=== PATIENT | female | born 1945 | race Caucasian/White ===

== ENCOUNTER 2016-09-16 12:31 | Inpatient (IN) | payer OTHER ==
[~2016-09-16] VITALS: Ht 165.1 cm; Wt 55.0 kg
--- NOTE | 2016-09-16 14:18 | ED ORDER SUMMARY ---
..... Patient: SHAYY PADILLA OrderSheet [facility] VisitID: [id number] [address] [place] [address] 70y, F Registration Date/Time: 09/16/2016 ORDER SHEET Weight: 56.6 kg (stated) Allergies: Lirica GENERAL ORDERS: CBC w Diff Urgent (12:51 09/16/2016 JSimbeck R.N. per protocol) (Ack 12:57 TBergley) (13:08 JSimbeck R.N.) CMP Urgent (12:51 09/16/2016 JSimbeck R.N. per protocol) (Ack 12:57 TBergley) (13:08 JSimbeck R.N.) UA-Culture if indicated Urgent (12:51 09/16/2016 JSimbeck R.N. per protocol) (Ack 12:57 TBergley) (15:20 JSimbeck R.N.) (Cancelled: Other15:21 JSimbeck R.N.) PT with INR Urgent (12:51 09/16/2016 JSimbeck R.N. per protocol) (Ack 12:57 TBergley) (13:08 JSimbeck R.N.) Amylase Urgent (12:51 09/16/2016 JSimbeck R.N. per protocol) (Ack 12:57 TBergley) (13:08 JSimbeck R.N.) Lipase Urgent (12:51 09/16/2016 JSimbeck R.N. per protocol) (Ack 12:57 TBergley) (13:08 JSimbeck R.N.) Pulse oximeter (12:51 09/16/2016 JSimbeck R.N. per protocol) (Ack 12:57 TBergley) (13:08 JSimbeck R.N.) POC Glucose (12:51 09/16/2016 JSimbeck R.N. per protocol) (Ack 12:57 TBergley) (13:09 JSimbeck R.N.) (Cancelled: Other13:09 JSimbeck R.N.) ABG (G) Urgent (14:18 09/16/2016 HBivens A.R.N.P.) (Ack 14:21 KHoerner) (15:25 KHoerner) TSH Urgent (14:18 09/16/2016 HBivens A.R.N.P.) (14:21 KHoerner) EKG - ER Stat (14:18 09/16/2016 HBivens A.R.N.P.) (14:36 PWeiler ER Tech1) (14:36 Winston R.N.) CPK Urgent (14:33 09/16/2016 HBivens A.R.N.P.) (14:38 KHoerner) Troponin-I Urgent (14:33 09/16/2016 HBivens A.R.N.P.) (14:38 KHoerner) Head Bellhop Captain (Continuous) (14:35 09/16/2016 HBivens A.R.N.P.) (14:35 Winston R.N.) Oxygen (2 L/min) (NC) (14:35 09/16/2016 HBivens A.R.N.P.) (14:36 Winston R.N.) UA-Culture if indicated Urgent (15:21 09/16/2016 JSimbeck R.N. per protocol) (Ack 15:25 KHoerner) (15:44 JSimbeck R.N.) MEDICATION ORDERS: IV FLUIDS: IV Saline Lock (12:51 09/16/2016 JSimbeck R.N. per protocol) (13:09 JSimbeck R.N.) IV NS : initial bolus 500 mL (1000 mL/hr), then none - for X1 (NOW) (13:46 09/16/2016 JSimbeck R.N. verbal order read back to HBivens A.R.N.P.) (13:52 JSimbeck R.N.) Zofran IV 4 mg (NOW) (14:09 09/16/2016 HBivens A.R.N.P.) (14:14 JSimbeck R.N.) IV NS : initial bolus 500 mL (1000 mL/hr), then none - for X1 (NOW) (15:53 09/16/2016 JSimbeck R.N. verbal order read back to HBivens A.R.N.P.) (15:57 Martin Fenton) ORDER SHEET NOTES: [Electronically signed by Jame Roberts R.N. (18:51 09/16/2016)] [Electronically signed by Linnette RivasNCourtPCourt (21:30 09/16/2016)] [Electronically locked/signed by Jame Roberts R.N. (18:51 09/16/2016)]
--- NOTE | 2016-09-16 14:18 | ED ORDER SUMMARY ---
..... Patient: SHAYY PADILLA OrderSheet [facility] VisitID: [id number] [address] [place] [address] 70y, F Registration Date/Time: 09/16/2016 ORDER SHEET Weight: 56.6 kg (stated) Allergies: Lirica GENERAL ORDERS: CBC w Diff Urgent (12:51 09/16/2016 JSimbeck R.N. per protocol) (Ack 12:57 TBergley) (13:08 JSimbeck R.N.) CMP Urgent (12:51 09/16/2016 JSimbeck R.N. per protocol) (Ack 12:57 TBergley) (13:08 JSimbeck R.N.) UA-Culture if indicated Urgent (12:51 09/16/2016 JSimbeck R.N. per protocol) (Ack 12:57 TBergley) (15:20 JSimbeck R.N.) (Cancelled: Other15:21 JSimbeck R.N.) PT with INR Urgent (12:51 09/16/2016 JSimbeck R.N. per protocol) (Ack 12:57 TBergley) (13:08 JSimbeck R.N.) Amylase Urgent (12:51 09/16/2016 JSimbeck R.N. per protocol) (Ack 12:57 TBergley) (13:08 JSimbeck R.N.) Lipase Urgent (12:51 09/16/2016 JSimbeck R.N. per protocol) (Ack 12:57 TBergley) (13:08 JSimbeck R.N.) Pulse oximeter (12:51 09/16/2016 JSimbeck R.N. per protocol) (Ack 12:57 TBergley) (13:08 JSimbeck R.N.) POC Glucose (12:51 09/16/2016 JSimbeck R.N. per protocol) (Ack 12:57 TBergley) (13:09 JSimbeck R.N.) (Cancelled: Other13:09 JSimbeck R.N.) ABG (G) Urgent (14:18 09/16/2016 HBivens A.R.N.P.) (Ack 14:21 KHoerner) (15:25 KHoerner) TSH Urgent (14:18 09/16/2016 HBivens A.R.N.P.) (14:21 KHoerner) EKG - ER Stat (14:18 09/16/2016 HBivens A.R.N.P.) (14:36 PWeiler ER Tech1) (14:36 Winston R.N.) CPK Urgent (14:33 09/16/2016 HBivens A.R.N.P.) (14:38 KHoerner) Troponin-I Urgent (14:33 09/16/2016 HBivens A.R.N.P.) (14:38 KHoerner) Hop Strainer (Continuous) (14:35 09/16/2016 HBivens A.R.N.P.) (14:35 Winston R.N.) Oxygen (2 L/min) (NC) (14:35 09/16/2016 HBivens A.R.N.P.) (14:36 Winston R.N.) UA-Culture if indicated Urgent (15:21 09/16/2016 JSimbeck R.N. per protocol) (Ack 15:25 KHoerner) (15:44 JSimbeck R.N.) MEDICATION ORDERS: IV FLUIDS: IV Saline Lock (12:51 09/16/2016 JSimbeck R.N. per protocol) (13:09 JSimbeck R.N.) IV NS : initial bolus 500 mL (1000 mL/hr), then none - for X1 (NOW) (13:46 09/16/2016 JSimbeck R.N. verbal order read back to HBivens A.R.N.P.) (13:52 JSimbeck R.N.) Zofran IV 4 mg (NOW) (14:09 09/16/2016 HBivens A.R.N.P.) (14:14 JSimbeck R.N.) IV NS : initial bolus 500 mL (1000 mL/hr), then none - for X1 (NOW) (15:53 09/16/2016 JSimbeck R.N. verbal order read back to HBivens A.R.N.P.) (15:57 Martin Fenton) ORDER SHEET NOTES: [Electronically signed by Jame Roberts R.N. (18:51 09/16/2016)] [Electronically signed by Linnette RivasNCourtPCourt (21:30 09/16/2016)] [Electronically locked/signed by Jame Roberts R.N. (18:51 09/16/2016)]
--- NOTE | 2016-09-16 14:18 | ED CLINICAL REPORT ---
Clinical Report - Physicians/Mid Levels [facility] [address] [address] 09/16/2016 12:38 Patient: SHAYY PADILLA Time Seen: 13:58; initial patient contact, initial documentation, patient care assumed. Arrived- By ambulance. Historian- patient. HISTORY OF PRESENT ILLNESS Chief Complaint: ( loss of appetite). At its maximum, severity described as severe. When seen in the E.D., severity described as severe. Modifying factors- worsened by food. Not relieved by anything. This started several mos ago and is still present (worse last few days). The patient has had associated loss of appetite, weight loss and decreased urine output. Last urinated: today. She has had generalized weakness, (says she is weak enough today, she can't walk). (decreased stool output in ileostomy bag). Similar symptoms previously: Twice, worse. Recent medical care: The patient was seen recently and hospitalized. ( hospitalized at [facility] in August for ruptured diverticulitis, colostomy bag placed, since then, no appetite, hospitalized again for 5 days at [facility] for same thing, weakness, no appetite, says they did multiple tests, gave fluids constantly, because her kidneys were starting to go into failure, couldn't find anything wrong with her, and kidneys started working normally, and stool started to show up in her bag again, so dc home, but since getting home, again has no appetite, says she tried to eat today, and soon as she took a bite, it came right back up). REVIEW OF SYSTEMS No fever, difficulty breathing, chest pain, abdominal pain or diarrhea. No black stools, bloody stools or blackouts. She has had severe nausea, difficulty with urination (decreased uop), and back pain (chronic back issues, sees pain dr for this). She has had mild vomiting. The vomiting has occurred only once and has been bilious. No feculent emesis, blood-tinged emesis, coffee-grounds emesis, frankly bloody emesis or unusually dark emesis. She has had difficulty with ambulation. It has been associated with weakness in both legs. No history of incontinence, affect changes, dizziness, recent trauma or headaches. No history of coordination problems. The patient has not had a shuffling gait. All systems otherwise negative, except as recorded above. PAST HISTORY See nurses notes. PROBLEMS: Bowel Perforation. Restless Legs Syndrome. Hypertension. --12:48 Jame Roberts R.N. ADDITIONAL SURGERIES: Colostomy. Gastric bypass x2. Ileostomy. --12:48 Jame Roberts R.N. Diverticulitis. SOCIAL HISTORY Heavy tobacco smoker. History of occasional drug use: marijuana. No alcohol use. No recent travel. Is a local resident. She lives alone. FAMILY HISTORY Negative. ADDITIONAL NOTES The nursing notes have been reviewed with agreement regarding the chief complaint, HPI, ROS, PMH and patient medications and allergies. PHYSICAL EXAM Vital Signs: 09/16/2016 12:35 BP: 118/75. HR: 100. RR: 20. O2 saturation: 98%. Temp: 98.1 F. Pain level now: 6/10. Have been reviewed as normal and appear to be correct. Appearance: Alert. No acute distress. Eyes: Pupils equal, round and reactive to light. Eyes normal inspection. Neck: Normal inspection. Neck supple. CVS: Normal heart rate and rhythm. Heart sounds normal. Pulses normal. Respiratory: No respiratory distress. Breath sounds normal. Chest nontender. Abdomen: No visible injury. Soft and nontender. Bowel sounds normal. No organomegaly. No mass. (ileostomy bag intact with green loose stool). Back: Normal inspection. Skin: Skin warm and dry. Normal skin color. No rash. Normal skin turgor. Extremities: Extremities exhibit normal ROM. No lower extremity edema. Neuro: Oriented X 3. No motor deficit. No sensory deficit. LABS, X-RAYS, AND EKG EKG: EKG time: (1426). Rate: 77. ST elevation in lead II, III and V5- consistent with inferior infarction and early repolarization. The study has been interpreted contemporaneously by me (and Dr Pearce and Dr Martinez). The EKG appears to be a good tracing. Interpretation time: 1428. Laboratory Tests: CBC w Diff: (ROD: 09/16/2016 13:00) ( MsgRcvd 09/16/2016 14:20) Final results Test Result Flag Units (Reference) WHITE BLOOD COUNT 11.3 K/uL (4.5-11.5) RED BLOOD COUNT 4.16 M/uL (4.00-5.20) HEMOGLOBIN 11.7 L gm/dL (12.0-16.0) HEMATOCRIT 35.5 L % (36.0-46.0) MEAN CELL VOLUME 85 fL (80-100) MEAN CORPUSCULAR HGB 28 pg (26-34) MEAN CORPUSCULAR HGB CONC 33 g/dL (31-37) RED CELL DISTRIBUTION WIDTH 15.3 H % (11.6-14.8) PLATELET COUNT 525 H K/uL (150-400) POLY % 63 % (50-75) BAND % 3 % (0-8) LYMPH 27 % (25-40) MONO 6 % (3-14) EOSINOPHIL % 1 % (0-4) BASOPHIL % 0 % (0-2) METAMYELOCYTE % 0 % (0-1) MYELOCYTE 0 % (0-1) OTHER CELL TYPE 0 RBC MORPHOLOGY NORMAL~~PLTS INC PT with INR: (ROD: 09/16/2016 13:00) ( [facility] 09/16/2016 13:35) Final results Test Result Flag Units (Reference) INR 1.0 (0.8-1.2) Low Intensity Therapy: INR 1.5-2.0 PT range 18.5-23.1Mod.Intensity Therapy: INR 2.0-3.0 PT range 23.1-31.5High Intensity Therapy: INR 2.5-3.5 PT range 27.4-35.5High Intensity Therapy 2: INR 3.0-4.0 PT range 31.5-39.3 CMP: (ROD: 09/16/2016 13:00) ( [facility] 09/16/2016 14:52) Final results Test Result Flag Units (Reference) GLUCOSE 125 H mg/dL (70-110) BUN 28 H mg/dL (7-18) CREATININE 1.8 H mg/dL (0.6-1.3) Estimated GFR 29.65 mL/min Estimated GFR- 35.94 mL/min Note: Persistent reduction over 3 months in eGFR<60 mL/min/1.73 m2 defines CKD. Patients with eGFR values>=60 mL/min/1.73 m2 may also have CKD if evidence ofpersistent proteinuria. Additional information may be foundat www.[email or web address].org. SODIUM 125 L mmol/L (136-145) POTASSIUM 5.2 H mmol/L (3.5-5.1) CHLORIDE 96 L mmol/L (98-107) CARBON DIOXIDE 14 L mmol/L (21-32) CALCIUM 9.0 mg/dL (8.5-10.1) TOTAL PROTEIN 7.6 g/dL (6.4-8.2) ALBUMIN 3.7 g/dL (3.3-5.0) BILIRUBIN, TOTAL 0.4 mg/dL (0.0-1.0) ALKALINE PHOSPHATASE 103 U/L (46-116) AST (SGOT) 19 U/L (15-37) ALT (SGPT) 20 U/L (12-78) LIPASE 335 U/L (73-393) AMYLASE 87 U/L (25-115) CPK 33 U/L (24-260) TROPONIN I <0.05 ng/mL (0.00-1.5) TROPONIN REFERENCE RANGE:<0.1 NEGATIVE0.1-1.5 INDETERMINANT>1.5 POSITIVE THYROID STIMULATING HORMONE 0.586 uIU/mL (0.30-3.74) ABG: (ROD: 09/16/2016 14:18) ( MsgRcvd 09/16/2016 15:02) Final results Test Result Flag Units (Reference) FIO2 0.21 L % (20-101) ABG MODE OF DELIVERY RA MODIFIED JEFRY TEST POSITIVE? YES LITERS PER MIN. 0 L/MIN (0-20) ABG PATIENT RESP RATE 20 /MIN ARTERIAL BLOOD GAS pH 7.26 L (7.35-7.45) ABG PCO2 28.4 L mmHg (35-45) ABG PO2 91.4 H mmHg (60.0-80.0) ABG BASE EXCESS -13.0 *L mmol/L (-6.0--6.0) ABG HCO3 12.8 *L mmol/L (20.0-26.0) ABG TCO2 13.7 L mmol/L (24.0-30.0) ABG [id number] 24.3 H mmHg (7.0-14.0) *NOTE: Normal rangeis based on aFIO2 of 21% ABG SAT O2 97.4 % (95.1-100.0) ABG TOTAL HEMOGLOBIN 11.3 L g/dL (12.0-16.0) ABG O2 HEMOGLOBIN 95.5 % (95.0-100.0) ABG CARBOXYHEMOGLOBIN 1.9 H % (0.5-1.5) ABG METHEMOGLOBIN 0.1 L % (0.4-1.5) ABG RHEMOGLOBIN 2.5 % COMMENTS ROOM AIR . PROGRESS AND PROCEDURES Course of Care: had tech take ekg to Dr Martinez to review, more labs being ordered asked water analyst to get old ekg 15:05 09/16/16. RT reporting pt's blood gases and pt in metabolic acidosis based on results 15:43 09/16/16. still waiting on old ekg or records from [facility], Dr Martinez did come and eval pt for admit. 09/16/2016 14:30 BP: 105/65. HR: 80. RR: 12. O2 saturation: 97%. Pain level now: 6/10. Vital Signs: have been reviewed as normal and appear to be correct. Discussed case with on-call health care provider, ([phone] Martinez). Reviewed test results and need for additional work-up. Agreed upon treatment plan and decision to admit. Health care provider will see patient in ED. Differential Diagnosis: Other possible considerations: kidney disease, thyroid disease, electrolyte imbalance, ca, sbo, dehydration, viral illness. Above considerations are based on history, physical exam, reassessment and laboratory data. Differential diagnosis was discussed with patient. CLINICAL IMPRESSION Acute generalized weakness. Acute renal insufficiency. Moderate hyponatremia. (Electronically signed by Linnette Rivas A.R.N.P. 09/16/2016 21:30)
--- NOTE | 2016-09-16 14:18 | ED NURSING NOTES ---
Clinical Report - Nurses [facility] [address] [place] [address] 09/16/2016 12:38 Patient: SHAYY PADILLA TRIAGE Triage time 1235. Acuity: LEVEL 3. Chief Complaint: (Loss of appetite, weakness, decreased po intake, decreased ileostomy output, decreased urine output, SOB. Onset several months ago, much worse for the past few days.). SEPSIS SCREEN: Sepsis Screen. Negative (no infection suspected/documented). KALYAN COMA SCORE: Kalyan Coma Scale: 15- eyes open spontaneously (4); best verbal response- oriented x 4 (5); best motor response- obeys commands (6). --12:49 Jame Roberts R.N. 12:35 09/16/16. BP: 118/75 (regular adult cuff) taken on the left arm, while lying. HR: 100. RR: 20. O2 saturation: 98% on room air. Temp: 98.1 F (oral). Pain level now: 09/11. --12:49 Jame Roberts R.N. Weight: 56.6 kg stated. Height/Length: 65 inches Per Patient. BMI: 20.8. --12:42 Jame Roberts R.N. Medications Sertraline HCl Oral. --12:45 Jame Roberts R.N. BusPIRone HCl Oral. --12:45 Jame Roberts R.N. Claypool Oral. --12:45 Jame Roberts R.N. HTN med?? not taking for the past 2 weeks. --12:45 Jame Roberts R.N. Zolpidem Tartrate Oral (Ran Out). --12:46 Jame Roberts R.N. Ativan Oral (Ran Out). --12:46 Jame Roberts R.N. Allergies Lirica. --12:44 Jame Roberts R.N. History Arrived by EMS, and (Aid-99). Historian: EMS and patient. SOCIAL HX: Heavy tobacco smoker (cigarette)- less than 1 pack per day. History of occasional drug use. No alcohol use. ABUSE ASSESSMENT: No report of abuse. --12:49 Jame Roberts R.N. PROBLEMS: Bowel Perforation. Restless Legs Syndrome. Hypertension. --12:48 Jame Roberts R.N. ADDITIONAL SURGERIES: Colostomy. Gastric bypass x2. Ileostomy. --12:48 Jame Roberts R.N. Interventions ID band on patient. To treatment room. --12:49 Jame Roberts R.N. PHYSICAL ASSESSMENT late entry -12:42. To room via stretcher. GENERAL / NEURO / PSYCH: Alert. Oriented X 4. Appears anxious. She has had generalized weakness (worsening). HEENT: Pupils equal, round and reactive to light. No facial asymmetry noted. Mucous membranes are pink. RESPIRATORY: Mild respiratory distress. The patient can speak in full sentences. Chest nontender. Breath sounds within normal limits. CVS: ( Trace bilat LE edema). Capillary refill less than 2 seconds. Pulses within normal limits. GI / : ( ileostomy draining). Abdomen soft and nontender and normal bowel sounds. SKIN: Skin is warm and dry. Poor skin turgor. --13:13 Jame Roberts R.N. NURSING PROGRESS NOTES 13:00 09/16/2016 Site #1 started via IV in the right wrist with an 20g angiocath, with aseptic technique and good blood return; two attempts. Blood drawn: rainbow set. Labeled in the presence of the patient and sent to the lab. Saline lock flushed with 10 mL saline. --13:09 Jame Roberts R.N. late entry -12:42. Pulse oximeter and NIBP monitor placed on patient; monitor alarms on. Patient gowned. Head of bed elevated. Reassurance given. Two patient identifiers checked. Call light placed in reach. Side rails up x 2. Bed placed in lowest position. Brakes of bed on. Patient ready for evaluation- chart flagged. --13:13 Jame Roberts R.N. 13:50 09/16/2016 Started bag #1 1000 mL IV Fluids IV NS (Saline); bolus of 500 mL over 35 minute(s) via site #1 via IV pump. Allergies verified and confirmed 5 rights. IV patency established. IV site checked: no pain, redness, or swelling. IV flushed thoroughly pre- and post-medication administration. --13:52 Jame Roberts R.N. 14:14 09/16/2016 Zofran (Ondansetron HCl) IVP 4 mg given over 1 minute(s) via site #1. Allergies verified and confirmed 5 rights. IV patency established. IV site checked: no pain, redness, or swelling. IV flushed thoroughly pre- and post-medication administration. IVP given by RN. --14:14 Jame Roberts R.N. 13:40 09/16/16. BP: 121/68. HR: 79. RR: 20. O2 saturation: 96% on room air. Pain level now: 09/11. --14:17 Jame Roberts R.N. 14:00 09/16/16. BP: 106/73. HR: 79. RR: 20. O2 saturation: 97% on room air. Pain level now: 09/11. --14:17 Jame Roberts R.N. 14:28 09/16/2016 IV Fluids IV NS Discontinued: bag #1 STOPPED. Total amount infused: 500 ml mL. --14:29 Fabi Reyes R.N. 14:30 09/16/16. BP: 105/65. HR: 80. RR: 12. O2 saturation: 97% on room air. Pain level now: 09/11. --14:33 Fabi Reyes R.N. 14:30 09/16/16. Reassessment after fluids administered. She is calm and resting quietly. Overall patient status is the same- she states feels the same. RESPIRATORY: No respiratory distress. SKIN: Skin is warm and dry. --14:33 Fabi Reyes R.N. EKG time: (5219). EKG was ordered, performed by a tech and shown to the MIXER MACHINE FEEDER. --14:37 Preston Marin, ERICA Tech1 14:38 09/16/16. O2 saturation: 98%. O2 started via nasal cannula at 2 liters/minute. --14:39 Fabi Reyes R.N. ( Pt up to the BS, voided 75ml, emptied her ileostomy, states she is starting to feel a little better after the IVF.). --15:52 Jame Roberts R.N. 15:55 09/16/2016 Started bag #1 500 mL IV Fluids IV NS (Saline); bolus of 500 mL over 35 minute(s) via site #1 via IV pump. Allergies verified and confirmed 5 rights. IV patency established. IV site checked: no pain, redness, or swelling. IV flushed thoroughly pre- and post-medication administration. --15:57 Jame Roberts R.N. 16:30 09/16/2016 IV Fluids IV NS Discontinued: bag #1 completed. Total amount infused: 500 mL. IV patency established. IV site checked: no pain, redness, or swelling. IV flushed thoroughly. --16:34 Jame Roberts R.N. 17:00 09/16/16. BP: 114/57. HR: 78. RR: 15. O2 saturation: 98% on room air. Pain level now: 07/12. --18:30 Jame Roberts R.N. 16:00 09/16/16. BP: 124/63. HR: 87. RR: 17. O2 saturation: 98% on room air. Pain level now: 07/12. --18:31 Jame Roberts R.N. 15:15 09/16/16. BP: 121/70. HR: 84. RR: 19. O2 saturation: 97% on room air. Pain level now: 07/12. --18:32 Jame Roberts R.N. DISPOSITION / DISCHARGE Report was given to a nurse via a phone call. Report included patient's care, treatment, medications, reviewed medication reconcilliation, and condition (including any recent changes or anticipated changes). All questions were answered. Report was acknowledged. --18:06 Jame Roberts R.N. 18:15 09/16/2016 Site #[address] upon admission; patent, no pain and no signs of infection or infiltration. Good blood return present. Flushed with 10 mL saline; flushes easily. --18:28 Jame Roberts R.N. Departure time: 1814. Condition at departure: unchanged and stable. Admitted to the Critical Care Unit (301). Transported via stretcher by nurse with IV. --18:29 Jame Roberts R.N. 18:00 09/16/16. BP: 126/55 (regular adult cuff) taken on the left arm, while lying. HR: 91. RR: 15. O2 saturation: 98% on room air. Temp: 98.1 F (oral). Pain level now: 07/12. --18:29 Jame Roberts R.N. Locked/Released at 09/16/2016 18:51 by Jame Roberts R.N.
--- NOTE | 2016-09-16 16:52 | Progress Note ---
Subjective General Admission History and Physical Examination Patient Name: Paty Reed Admission Date: September 16, 2016 Primary Care Provider: Oracio Demarco M.D. Attending Physician: Brandon Martinez MD Admitting Physician: Brandon Martinez M.D. Code Status: FULL CODE Room: 301 Status: Inpatient, CCU SUBJECTIVE Historian: Patient Reliability: Fair Chief Complaint: Weakness, nausea/vomiting, History of Present Illness: The patient is a 70-year-old white female with a significant past medical history of diverticulitis status post partial colectomy with colostomy/ileostomy , hypertension, restless leg syndrome, chronic pain, depression/anxiety, insomnia, who presented to [facility] emergency department on the day of admission secondary to complaints of diffuse weakness, nausea, vomiting, and weight loss. [facility] ER evaluation was consistent with UTI, metabolic acidosis, hyponatremia, and generalized weakness. Secondary to the above, Brandon Martinez M.D. admitted the patient for further evaluation and treatment PAST MEDICAL HISTORY Illnesses: 1. Diverticulosis/diverticulitis 2. Depression 3. Generalized anxiety disorder 4. Insomnia Allergies: 1. No known drug allergies Medications: 1. Trazodone 100 mg by mouth twice a day 2. Vicodin 10/325 1 by mouth 3 times a day 3. Ambien 6.25 mg by mouth daily at bedtime 4. Zoloft 50 mg by mouth daily 5. Ativan 0.5 mg by mouth twice a day when necessary anxiety 6. BuSpar 1 by mouth twice a day dosage unknown Surgery: 1. Hysterectomy 2. Gastric bypass surgery 2 3. Cholecystectomy 4. Back surgery 5. Bilateral foot surgery Injuries: 1. No significant Hospitalizations: 1. For above surgery and medical problems FAMILY HISTORY Parents: 1. Father, history unknown, 2. Mother, , 90, cause unknown Siblings: 1. The patient has 3 siblings one with history of cancer type unknown Children: 1. The patient has 2 children one with a history of degenerative joint disease Other significant family history: None SOCIAL HISTORY 1. Marital Status: 2. Scientologist: None 3. Education: High school and 3 years of college 4. Employment History: Retired 5. Occupational health exposures: None HABITS 1. Tobacco: The patient has ongoing use of cigarettes duration and amount unknown 2. Drugs: None 3. Alcohol: None 4. Caffeine: None HEALTH SUPERVISION Item/Test 1. Vision screen: 2014 2. Cholesterol Profile: Unknown 3. PSA: Not applicable 4. INOCENCIO: 2015 5. FOBT: Unknown 6. Blood Glucose: 2016 7. Colonoscopy: 2015 8. History and physical exam: Unknown 9. Audiogram: 2014 10. Mammogram: No recent 11. Pap/pelvic exam: No recent IMMUNIZATIONS: 1. Pneumococcal: Unknown 2. Influenza: Unknown 3. Tetanus: Unknown ADVANCED DIRECTIVES: 1. Living well: [Living well] 2. POLST: [POLST] 3. Code Status: [CODE STATUS] 4. Durable Power Nuclear Pharmacist Health care: [DPOA] 5. Donor card: [Donor card] REVIEW OF SYSTEMS Remarkable for those things stated in the history of present illness and past medical history. Seventeen point review of system completed with the following notable findings: [ROS] Physical Exam General Appearance Alert, Oriented X3, Cooperative, No acute distress HEENT Atraumatic, PERRLA, EOMI, Moist mucous membranes Lungs Clear to auscultation, Normal air movement Neck Supple, No JVD Cardiovascular Regular rate and rhythm, Normal S1 and S2 Abdomen Normal bowel sounds, Soft, colostomy present Extremities No cyanosis, No clubbing, No edema Neurological Cranial nerves intact, No lateralizing signs, generalized weakness, no focal neurological deficits Psych/Mental Status Mental status normal, Mood normal LAB Results Laboratory Tests 09/16 09/16 09/16 1655 1540 1433 Chemistry Creatine Kinase Cancelled Troponin (0.00 - 1.5 ng/mL) <0.05 Cancelled Urines Urine Color YELLOW Urine Appearance CLOUDY Urine pH (5.0 - 8.0) 6.0 Ur Specific [place] (1.010 - 1.030) 1.020 Urine Protein (NEGATIVE) TRACE Urine Ketones (NEGATIVE) NEGATIVE Urine Blood (NEGATIVE) TRACE-INTACT Urine Nitrite (NEGATIVE) NEGATIVE Urine Bilirubin (NEGATIVE) NEGATIVE Urine Urobilinogen (0.2 - 1.0 EU/dL) 0.2 Ur Leukocyte Esterase (NEGATIVE) POSITIVE Urine RBC (0 - 1 rbc/hpf) 1-3 Urine WBC (0 - 1 wbc/hpf) 50-75 Ur Epithelial Cells (0 - 5 EPI/hpf) 3-5 Urine Bacteria (NONE SEEN) MANY (4+) Urine Glucose (NEGATIVE) NEGATIVE Urine Comment CULTURE INDICATED 09/16 09/16 09/16 1418 1340 1300 Blood Gas Total CO2 (24.0 - 30.0 mmol/L) 13.7 ABG pH (7.35 - 7.45) 7.26 ABG pCO2 at Pt Temp (35 - 45 mmHg) 28.4 ABG pO2 at Pt Temp (60.0 - 80.0 mmHg) 91.4 ABG HCO3 (20.0 - 26.0 mmol/L) 12.8 ABG O2 Sat Calc/Breanna (95.1 - 100.0 %) 97.4 ABG Base Excess (-6.0 - -6.0 mmol/L) -13.0 ABG Reduced Hgb (%) 2.5 ABG Carboxyhemoglobin (0.5 - 1.5 %) 1.9 ABG Methemoglobin (0.4 - 1.5 %) 0.1 Eric Test YES Other Total Hgb (12.0 - 16.0 g/dL) 11.3 A-a O2 Gradient (7.0 - 14.0 mmHg) 24.3 Hgb O2 Saturation (95.0 - 100.0 %) 95.5 Respiration Rate (/MIN) 20 O2 Liters/Min (0 - 20 L/MIN) 0 Vent Mode RA FiO2 (20 - 101 %) 0.21 Blood Gas Comments ROOM AIR Chemistry Plasma Sodium (136 - 145 mmol/L) 125 Plasma Potassium (3.5 - 5.1 mmol/L) 5.2 Plasma Chloride (98 - 107 mmol/L) 96 CO2 (Enzymatic) (21 - 32 mmol/L) 14 BUN (7 - 18 mg/dL) 28 Creatinine (0.6 - 1.3 mg/dL) 1.8 Est GFR ( Amer) (mL/min) 35.94 Est GFR (Non-Af Amer) (mL/min) 29.65 Glucose (70 - 110 mg/dL) 125 Plasma Calcium (8.5 - 10.1 mg/dL) 9.0 Total Bilirubin (0.0 - 1.0 mg/dL) 0.4 AST (15 - 37 U/L) 19 ALT (12 - 78 U/L) 20 Alkaline Phosphatase (46 - 116 U/L) 103 Creatine Kinase (24 - 260 U/L) 33 Troponin (0.00 - 1.5 ng/mL) <0.05 Total Protein (6.4 - 8.2 g/dL) 7.6 Albumin (3.3 - 5.0 g/dL) 3.7 Amylase (25 - 115 U/L) 87 Lipase (73 - 393 U/L) 335 TSH 3rd Generation (0.30 - 3.74 uIU/mL) Cancelled 0.586 Coagulation INR (0.8 - 1.2) 1.0 Hematology WBC (4.5 - 11.5 K/uL) 11.3 RBC (4.00 - 5.20 M/uL) 4.16 Hgb (12.0 - 16.0 gm/dL) 11.7 Hct (36.0 - 46.0 %) 35.5 MCV (80 - 100 fL) 85 MCH (26 - 34 pg) 28 RDW (11.6 - 14.8 %) 15.3 Neut % (Auto) (50 - 75 %) 63 Lymph % (Auto) (25 - 40 %) 27 [place] % (Auto) (3 - 14 %) 6 Eos % (Auto) (0 - 4 %) 1 Baso % (Auto) (0 - 2 %) 0 Band Neutrophils % (0 - 8 %) 3 Metamyelocytes % (0 - 1 %) 0 Myelocytes (0 - 1 %) 0 Other Cell Type 0 Plt Count, EDTA (150 - 400 K/uL) 525 RBC Morphology (5282 A) PLTS INC PUBS MCHC (31 - 37 g/dL) 33 Urines Urine Color Cancelled Urine Appearance Cancelled Urine pH Cancelled Ur Specific [place] Cancelled Urine Protein Cancelled Urine Ketones Cancelled Urine Blood Cancelled Urine Nitrite Cancelled Urine Bilirubin Cancelled Urine Urobilinogen Cancelled Ur Leukocyte Esterase Cancelled Urine RBC Cancelled Urine WBC Cancelled Ur Epithelial Cells Cancelled Urine Bacteria Cancelled Urine Glucose Cancelled Microbiology Date/Time Procedure - Status Source Growth 09/16 1540 Urine Culture - RECD URINE CC Assessment and Plan Problem List 1. UTI (urinary tract infection) Plan -patient presents with findings of UTI -Rocephin 1 g IV daily -urine C&S -monitor 2. Generalized weakness Plan -patient presents with findings of generalized weakness -unable to care for herself at this time -setting of UTI, dehydration, metabolic acidosis -monitor -physical therapy evaluation in a.m. 3. Metabolic acidosis Plan -Patient with findings of metabolic acidosis with respiratory compensation -bicarbonate drip -probable GI bicarbonate loss -monitor 4. Hyponatremia Status Acute Onset Date Unknown Plan -patient with mild hyponatremia -normal saline/ normal saline equivalent infusion IV -limited oral H2O intake -monitor -check thyroid function 5. Chronic back pain Status Chronic Onset Date Unknown Plan -patient with history of chronic pain -continue outpatient medical regimen Current status: Fair, unstable Anticipated discharge date: Anticipated discharge in 2-3 days Anticipated discharge placement: adult home/longterm facility Patient care time: Time in chart review, patient interview, physical exam, CPOE, and care documentation: 70 mins Visit to patient today: 2 Complexity of care: High DVT prophylaxis: Heparin
[2016-09-16 18:30] VITALS: BP 108/68
[2016-09-16 19:00] VITALS: BP 107/78
[2016-09-16 20:00] VITALS: BP 97/68
[2016-09-16] MEDS ORDERED: SERTRALINE HCL25 MG PO (20:16)
[2016-09-16] MEDS ORDERED: ATIVAN0.5 MG PO (20:17)
[2016-09-16] MEDS ORDERED: BUSPIRONE HCL5 MG PO (20:17)
[2016-09-16] MEDS ORDERED: ZESTRIL2.5 MG PO (20:18)
[2016-09-16] MEDS ORDERED: AMBIEN5 MG PO (20:19)
[2016-09-16] MEDS ORDERED: TRAZODONE HCL50 MG PO (20:22)
[2016-09-16] MEDS ORDERED: ZOFRAN ODT4 MG PO (20:22)
[2016-09-16] MEDS ORDERED: NORCO1 TAB PO (20:23)
[2016-09-16 21:00] VITALS: BP 122/70
--- NOTE | 2016-09-16 21:31 | ED DISCHARGE INSTRUCTIONS ---
Patient: SHAYY PADILLA General Instructions [facility] VisitID: [id number] [address] [place] [address] 70y, F Registration Date/Time: 09/16/2016 Acute generalized weakness. Acute renal insufficiency. Moderate hyponatremia. (Electronically signed by Linnette Rivas A.R.N.P. 09/16/2016 21:30)
--- NOTE | 2016-09-16 21:31 | ED MAR SUMMARY ---
..... Medication Administration Record [facility] [address] [place] [address] Patient: SHAYY PADILLA Visit ID: [id number] 70y, F Weight: 56.6 kg Height/Length: 65 in BMI: 20.8 ALLERGIES: Lirica Start 13:50 09/16/2016 Jame Roberts R.N., Stop 14:28 09/16/2016 Fabi Reyes R.N. Medication Administered: IV NS (SALINE), Dose: IV Fluids, Bolus: 500 mL over 35 minute(s), Dispensed: 1000 mL bag, Site: #1 right wrist. Medication Ordered: IV NS : initial bolus 500 mL (1000 mL/hr), then none - for X1 (NOW). Given 14:14 09/16/2016 Jame Roberts R.N. Medication Administered: ZOFRAN [IVP] (ONDANSETRON HCL), Dose: 4 mg IVP over 1 minute(s), Site: #1 right wrist. Medication Ordered: Zofran IV 4 mg (NOW). Start 15:55 09/16/2016 Jame Roberts R.N., Stop 16:30 09/16/2016 Jame Roberts R.N. Medication Administered: IV NS (SALINE), Dose: IV Fluids, Bolus: 500 mL over 35 minute(s), Dispensed: 500 mL bag, Site: #1 right wrist. Medication Ordered: IV NS : initial bolus 500 mL (1000 mL/hr), then none - for X1 (NOW).
--- NOTE | 2016-09-16 21:31 | ED MAR SUMMARY ---
..... Medication Administration Record [facility] [address] [place] [address] Patient: SHAYY PADILLA Visit ID: [id number] 70y, F Weight: 56.6 kg Height/Length: 65 in BMI: 20.8 ALLERGIES: Lirica Start 13:50 09/16/2016 Jame Roberts R.N., Stop 14:28 09/16/2016 Fabi Reyes R.N. Medication Administered: IV NS (SALINE), Dose: IV Fluids, Bolus: 500 mL over 35 minute(s), Dispensed: 1000 mL bag, Site: #1 right wrist. Medication Ordered: IV NS : initial bolus 500 mL (1000 mL/hr), then none - for X1 (NOW). Given 14:14 09/16/2016 Jame Roberts R.N. Medication Administered: ZOFRAN [IVP] (ONDANSETRON HCL), Dose: 4 mg IVP over 1 minute(s), Site: #1 right wrist. Medication Ordered: Zofran IV 4 mg (NOW). Start 15:55 09/16/2016 Jame Roberts R.N., Stop 16:30 09/16/2016 Jame Roberts R.N. Medication Administered: IV NS (SALINE), Dose: IV Fluids, Bolus: 500 mL over 35 minute(s), Dispensed: 500 mL bag, Site: #1 right wrist. Medication Ordered: IV NS : initial bolus 500 mL (1000 mL/hr), then none - for X1 (NOW).
--- NOTE | 2016-09-16 21:31 | ED DISCHARGE INSTRUCTIONS ---
Patient: SHAYY PADILLA General Instructions [facility] VisitID: [id number] [address] [place] [address] 70y, F Registration Date/Time: 09/16/2016 Acute generalized weakness. Acute renal insufficiency. Moderate hyponatremia. (Electronically signed by Linnette Rivas A.R.N.P. 09/16/2016 21:30)
--- NOTE | 2016-09-16 21:31 | ED MED RECONCILIATION SUMMARY ---
Patient: SHAYY PADILLA Medication Reconciliation Report [facility] VisitID: [id number] [address] [place] [address] 70y, F Registration Date/Time: 09/16/2016 Weight: 56.6 kg Height/Length: 65 in. BMI: 20.8 ALLERGIES: Lirica The patient's Home Medications are listed below: THE FOLLOWING MEDICATIONS NEED TO BE RECONCILED: Ativan Oral, Ran Out BusPIRone HCl Oral HTN med?? not taking for the past 2 weeks [place] Oral Sertraline HCl Oral Zolpidem Tartrate Oral, Ran Out The source(s) of the original Home Medication information: Not obtained. The following Medications were given to the patient in the Emergency Department: IV NS IV Fluids bolus 500 mL over 35 minute(s), administered: 09/16/2016 1:50:00 PM Zofran [IVP] IVP 4 mg, administered: 09/16/2016 2:14:00 PM IV NS IV Fluids bolus 500 mL over 35 minute(s), administered: 09/16/2016 3:55:00 PM The following Medications were prescribed to the patient: None.
--- NOTE | 2016-09-16 21:31 | ED MED RECONCILIATION SUMMARY ---
Patient: SHAYY PADILLA Medication Reconciliation Report [facility] VisitID: [id number] [address] [place] [address] 70y, F Registration Date/Time: 09/16/2016 Weight: 56.6 kg Height/Length: 65 in. BMI: 20.8 ALLERGIES: Lirica The patient's Home Medications are listed below: THE FOLLOWING MEDICATIONS NEED TO BE RECONCILED: Ativan Oral, Ran Out BusPIRone HCl Oral HTN med?? not taking for the past 2 weeks [place] Oral Sertraline HCl Oral Zolpidem Tartrate Oral, Ran Out The source(s) of the original Home Medication information: Not obtained. The following Medications were given to the patient in the Emergency Department: IV NS IV Fluids bolus 500 mL over 35 minute(s), administered: 09/16/2016 1:50:00 PM Zofran [IVP] IVP 4 mg, administered: 09/16/2016 2:14:00 PM IV NS IV Fluids bolus 500 mL over 35 minute(s), administered: 09/16/2016 3:55:00 PM The following Medications were prescribed to the patient: None.
[2016-09-16 22:02] VITALS: BP 114/64
[2016-09-16 23:14] VITALS: BP 108/54
[2016-09-17] VITALS (21 sets, daily range): BP systolic 84–170; BP diastolic 49–89
--- NOTE | 2016-09-17 07:06 | Progress Note ---
Subjective General Note Date: December 18, 2016 Admission Date: December 17, 2016 Hospital Day: 2 PCP: [PCP] Status: Inpatient, CCU Advanced Directive: FULL CODE Room: 301 Admission History: The patient is a 70-year-old white female with a significant past medical history of diverticulitis status post partial colectomy with colostomy/ileostomy , hypertension, restless leg syndrome, chronic pain, depression/anxiety, insomnia, who presented to [facility] emergency department on the day of admission secondary to complaints of diffuse weakness, nausea, vomiting, and weight loss. [facility] ER evaluation was consistent with UTI, metabolic acidosis, hyponatremia, and generalized weakness. Secondary to the above, Brandon Martinez M.D. admitted the patient for further evaluation and treatment For other history present illness, past medical history, family history, social history, review of systems, and admission physical examination please see the patient's history and physical examination and ER visit note in the patient's medical record. Subjective: The patient states she is doing much better today. Able to take clear liquid/ full liquids without problems. Weakness much improved. Continues with low back pain. Patient requests: None Medications and Allergies Medications Current Medications Sig/Niki Start time Last Medication Dose Route Stop Time Status Admin Famotidine 20 MG DAILY 09/17 0900 AC PO Sertraline HCl 25 MG DAILY 09/17 0900 AC PO Sodium Bicarbonate 100 MEQ ASDIRECTED 09/17 0700 UNi Dextrose/Sodium 1,000 ML IV Chloride Zolpidem Tartrate See Dose QHS PRN 09/16 2330 AC 09/16 Insts (1) PO 2349 Acetaminophen/ See Dose Q6H PRN 09/16 2245 AC 09/17 Hydrocodone Bitart Insts (2) PO 0520 Heparin Sodium 5,000 UNITS Q8HR 09/16 2200 AC 09/17 (Porcine) SC 0519 Ceftriaxone Sodium/ 50 ML DAILY 09/16 1915 AC 09/16 Dextrose IV 2105 Acetaminophen 650 MG Q4H PRN 09/16 1630 AC PO Al Hydrox/Mg Hydrox/ 15 ML Q1H PRN 09/16 1630 AC Simethicone PO Atropine Sulfate 0.5 MG Q3MIN PRN 09/16 1630 AC IV Lidocaine HCl See Dose ONCE PRN 09/16 1630 AC Insts (3) IV Magnesium Hydroxide 10 ML DAILY PRN 09/16 1630 AC PO Morphine Sulfate 2 MG Q3M PRN 09/16 1630 AC 09/17 IV 0234 Nitroglycerin 0.4 MG Q5M PRN 09/16 1630 AC SL Ondansetron HCl 4 MG Q6H PRN 09/16 1630 AC 09/16 IV 2104 Dose Instructions: (1)Zolpidem Tartrate: 5 - 10 MG (2)Acetaminophen/Hydrocodone Bitart: 1 - 2 TABLETS (3)Lidocaine HCl: 1.5 MG/KG Allergies Coded Allergies: Codeine (Severe, Vomiting/CHEST PRESSURE 09/16/16) Pregabalin (From Lyrica) (Severe, 09/16/16) Reconcile Medications Scheduled Medications Buspirone HCl (Buspirone HCl 5 MG) 5 MG TAB 5 MG PO DAILY (Reported) Hydrocodone-Acetaminophen 10/325 MG ([place] 10/325 MG) 1 TAB TAB 1 TAB PO Q4H (Reported) Lisinopril (Zestril 2.5 MG) 2.5 MG TAB 2.5 MG PO DAILY (Reported) Lorazepam (Ativan 0.5 MG) 0.5 MG TAB 0.5 MG PO BID (Reported) Ondansetron (Zofran Odt 4 MG) 4 MG TAB 4 MG PO Q8H (Reported) Sertraline HCl 25 MG TAB 25 MG PO DAILY (Reported) Trazodone HCl (Unknown Strength) TAB 100 MG PO QHS (Reported) Last Taken: At an unknown date and time Zolpidem Tartrate (Ambien) (Unknown Strength) TAB 6.25 MG PO QHS (Reported) Last Taken: At an unknown date and time Physical Exam Vital Signs / I&Os Vital Signs Date Time Temp Pulse Resp B/P Pulse O2 O2 Flow FiO2 Ox Delivery Rate 09/17 0550 98.8 67 16 126/65 97 Room Air 09/17 0511 60 14 105/89 97 Room Air 09/17 0418 62 17 112/61 98 Room Air 09/17 0319 61 15 97/54 97 Room Air 09/17 0210 98.1 73 13 115/57 98 Room Air 09/17 0113 66 16 108/50 97 Room Air 09/17 0010 71 18 94/59 97 Room Air 09/16 2314 81 11 108/54 95 Room Air 09/16 2258 98.8 06/15 2239 Room Air 09/16 2202 99.0 78 14 114/64 97 Room Air 09/16 2100 80 16 122/70 97 Room Air 09/16 2000 80 16 97/68 96 Room Air 09/16 1900 82 17 107/78 95 Room Air 09/16 1830 98.8 75 18 108/68 95 I&O 09/17 0000 09/16 1600 09/16 0800 Intake Total 900 Output Total 750 Balance 150 LAB Results Laboratory Tests 09/17 09/17 09/17 09/17 09/16 0503 0503 0503 0040 1655 Chemistry Plasma Sodium (136 - 145 mmol/L) 132 132 Plasma Potassium (3.5 - 5.1 mmol/L) 5.2 4.6 Plasma Chloride (98 - 107 mmol/L) 103 103 CO2 (Enzymatic) (21 - 32 mmol/L) 14 14 BUN (7 - 18 mg/dL) 23 22 Creatinine (0.6 - 1.3 mg/dL) 1.4 1.3 Est GFR ( Amer) (mL/min) 48.03 52.32 Est GFR (Non-Af Amer) (mL/min) 39.63 43.17 Glucose (70 - 110 mg/dL) 114 115 Plasma Calcium (8.5 - 10.1 mg/dL) 8.7 8.5 Total Bilirubin (0.0 - 1.0 mg/dL) 0.2 0.3 AST (15 - 37 U/L) 19 17 ALT (12 - 78 U/L) 16 15 Alkaline Phosphatase (46 - 116 U/L) 84 80 Troponin (0.00 - 1.5 ng/mL) <0.05 <0.05 Total Protein (6.4 - 8.2 g/dL) 6.2 6.4 Albumin (3.3 - 5.0 g/dL) 3.2 3.1 Cortisol AM Sample Pending Hematology WBC (4.5 - 11.5 K/uL) 8.2 RBC (4.00 - 5.20 M/uL) 3.47 Hgb (12.0 - 16.0 gm/dL) 9.7 Hct (36.0 - 46.0 %) 30.1 MCV (80 - 100 fL) 87 MCH (26 - 34 pg) 28 RDW (11.6 - 14.8 %) 15.5 Neut % (Auto) (50 - 75 %) 53.4 Lymph % (Auto) (25 - 40 %) 36.1 [place] % (Auto) (3 - 14 %) 9.4 Eos % (Auto) (0 - 4 %) 1.0 Baso % (Auto) (0 - 2 %) 0.1 Plt Count, EDTA (150 - 400 K/uL) 434 PUBS MCHC (31 - 37 g/dL) 32 09/16 09/16 09/16 1540 1433 1418 Blood Gas Total CO2 (24.0 - 30.0 mmol/L) 13.7 ABG pH (7.35 - 7.45) 7.26 ABG pCO2 at Pt Temp (35 - 45 mmHg) 28.4 ABG pO2 at Pt Temp (60.0 - 80.0 mmHg) 91.4 ABG HCO3 (20.0 - 26.0 mmol/L) 12.8 ABG O2 Sat Calc/Braenna (95.1 - 100.0 %) 97.4 ABG Base Excess (-6.0 - -6.0 mmol/L) -13.0 ABG Reduced Hgb (%) 2.5 ABG Carboxyhemoglobin (0.5 - 1.5 %) 1.9 ABG Methemoglobin (0.4 - 1.5 %) 0.1 Eric Test YES Other Total Hgb (12.0 - 16.0 g/dL) 11.3 A-a O2 Gradient (7.0 - 14.0 mmHg) 24.3 Hgb O2 Saturation (95.0 - 100.0 %) 95.5 Respiration Rate (/MIN) 20 O2 Liters/Min (0 - 20 L/MIN) 0 Vent Mode RA FiO2 (20 - 101 %) 0.21 Blood Gas Comments ROOM AIR Chemistry Creatine Kinase Cancelled Troponin Cancelled TSH 3rd Generation Cancelled Urines Urine Color YELLOW Urine Appearance CLOUDY Urine pH (5.0 - 8.0) 6.0 Ur Specific [place] (1.010 - 1.030) 1.020 Urine Protein (NEGATIVE) TRACE Urine Ketones (NEGATIVE) NEGATIVE Urine Blood (NEGATIVE) TRACE-INTACT Urine Nitrite (NEGATIVE) NEGATIVE Urine Bilirubin (NEGATIVE) NEGATIVE Urine Urobilinogen (0.2 - 1.0 EU/dL) 0.2 Ur Leukocyte Esterase (NEGATIVE) POSITIVE Urine RBC (0 - 1 rbc/hpf) 1-3 Urine WBC (0 - 1 wbc/hpf) 50-75 Ur Epithelial Cells (0 - 5 EPI/hpf) 3-5 Urine Bacteria (NONE SEEN) MANY (4+) Urine Glucose (NEGATIVE) NEGATIVE Urine Comment CULTURE INDICATED 09/16 09/16 1340 1300 Chemistry Plasma Sodium (136 - 145 mmol/L) 125 Plasma Potassium (3.5 - 5.1 mmol/L) 5.2 Plasma Chloride (98 - 107 mmol/L) 96 CO2 (Enzymatic) (21 - 32 mmol/L) 14 BUN (7 - 18 mg/dL) 28 Creatinine (0.6 - 1.3 mg/dL) 1.8 Est GFR ( Amer) (mL/min) 35.94 Est GFR (Non-Af Amer) (mL/min) 29.65 Glucose (70 - 110 mg/dL) 125 Plasma Calcium (8.5 - 10.1 mg/dL) 9.0 Total Bilirubin (0.0 - 1.0 mg/dL) 0.4 AST (15 - 37 U/L) 19 ALT (12 - 78 U/L) 20 Alkaline Phosphatase (46 - 116 U/L) 103 Creatine Kinase (24 - 260 U/L) 33 Troponin (0.00 - 1.5 ng/mL) <0.05 Total Protein (6.4 - 8.2 g/dL) 7.6 Albumin (3.3 - 5.0 g/dL) 3.7 Amylase (25 - 115 U/L) 87 Lipase (73 - 393 U/L) 335 TSH 3rd Generation (0.30 - 3.74 uIU/mL) 0.586 Coagulation INR (0.8 - 1.2) 1.0 Hematology WBC (4.5 - 11.5 K/uL) 11.3 RBC (4.00 - 5.20 M/uL) 4.16 Hgb (12.0 - 16.0 gm/dL) 11.7 Hct (36.0 - 46.0 %) 35.5 MCV (80 - 100 fL) 85 MCH (26 - 34 pg) 28 RDW (11.6 - 14.8 %) 15.3 Neut % (Auto) (50 - 75 %) 63 Lymph % (Auto) (25 - 40 %) 27 [place] % (Auto) (3 - 14 %) 6 Eos % (Auto) (0 - 4 %) 1 Baso % (Auto) (0 - 2 %) 0 Band Neutrophils % (0 - 8 %) 3 Metamyelocytes % (0 - 1 %) 0 Myelocytes (0 - 1 %) 0 Other Cell Type 0 Plt Count, EDTA (150 - 400 K/uL) 525 RBC Morphology (5282 A) PLTS INC PUBS MCHC (31 - 37 g/dL) 33 Urines Urine Color Cancelled Urine Appearance Cancelled Urine pH Cancelled Ur Specific [place] Cancelled Urine Protein Cancelled Urine Ketones Cancelled Urine Blood Cancelled Urine Nitrite Cancelled Urine Bilirubin Cancelled Urine Urobilinogen Cancelled Ur Leukocyte Esterase Cancelled Urine RBC Cancelled Urine WBC Cancelled Ur Epithelial Cells Cancelled Urine Bacteria Cancelled Urine Glucose Cancelled Microbiology Date/Time Procedure - Status Source Growth 09/16 1845 MRSA Screen - RECD NASAL 09/16 1540 Urine Culture - RECD URINE CC Assessment and Plan Problem List 1. UTI (urinary tract infection) Plan -Patient with findings of UTI -Rocephin 1 g IV daily -Await urine C&S 2. Generalized weakness Plan -Improved -Monitor 3. Metabolic acidosis Plan -Patient with findings of metabolic acidosis -IV fluids D5 0.2 normal saline with 100 mEq sodium bicarbonate per liter at 100 cc per hour -Monitor -Probable GI loss 4. Hyponatremia Status Acute Onset Date Unknown Plan -Patient with persistent hyponatremia -Sodium 132 (125-09/16/16) -Normal saline infusion -Fluid restriction orally if necessary 5. Chronic back pain Status Chronic Onset Date Unknown Plan -Patient with history of chronic pain -Continue Vicodin when necessary -Outpatient follow-up with PCP 6. Anemia Status Acute Onset Date Unknown Plan -Patient with mild anemia -H&H 9.7/30.1, MCV 87 -Check serum iron profile, B12, folate -Check stool Hemoccult -Monitor 7. Hyperkalemia Status Acute Onset Date Unknown Plan -Patient with mild hyperkalemia -Potassium 5.2 -Monitor -Bicarbonate drip Current status: Fair, stable Anticipated discharge date: Anticipated discharge in 2 days Anticipated discharge placement: senior care facility Patient care time: Time in chart review, patient interview, physical exam, CPOE, and care documentation: 35 mins Visit to patient today: 2 Complexity of care: High DVT prophylaxis: Heparin
[2016-09-18 04:28] VITALS: BP 89/55
[2016-09-18 06:16] VITALS: BP 88/65
--- NOTE | 2016-09-18 06:48 | Progress Note ---
Subjective General Note Date: December 19, 2016 Admission Date: December 17, 2016 Hospital Day: 3 PCP: Oracio Demarco M.D. Status: Inpatient, CCU Advanced Directive: FULL CODE Room: 301 Admission History: The patient is a 70-year-old white female with a significant past medical history of diverticulitis status post partial colectomy with colostomy/ileostomy , hypertension, restless leg syndrome, chronic pain, depression/anxiety, insomnia, who presented to [facility] emergency department on the day of admission secondary to complaints of diffuse weakness, nausea, vomiting, and weight loss. [facility] ER evaluation was consistent with UTI, metabolic acidosis, hyponatremia, and generalized weakness. Secondary to the above, Brandon Martinez M.D. admitted the patient for further evaluation and treatment For other history present illness, past medical history, family history, social history, review of systems, and admission physical examination please see the patient's history and physical examination and ER visit note in the patient's medical record. Subjective: The patient states she is doing much better today. Eating well without problems. Denies history of dysphagia. He has experienced fairly high volumes of loose stool through ostomy site Patient requests: None Medications and Allergies Medications Current Medications Sig/Niki Start time Last Medication Dose Route Stop Time Status Admin Lorazepam 0.5 MG Q8H PRN 09/17 1730 AC 09/18 IV 0142 Famotidine 20 MG DAILY 09/17 0900 AC 09/17 PO 0818 Sertraline HCl 25 MG DAILY 09/17 0900 AC 09/17 PO 0818 Sodium Bicarbonate 100 MEQ Q11H 09/17 0730 AC 09/18 Dextrose/Sodium 1,000 ML IV 0519 Chloride Zolpidem Tartrate See Dose QHS PRN 09/16 2330 AC 09/18 Insts (1) PO 0142 Acetaminophen/ See Dose Q6H PRN 09/16 2245 AC 09/17 Hydrocodone Bitart Insts (2) PO 2129 Heparin Sodium 5,000 UNITS Q8HR 09/16 2200 AC 09/18 (Porcine) SC 0627 Ceftriaxone Sodium/ 50 ML DAILY 09/16 1915 AC 09/17 Dextrose IV 0818 Acetaminophen 650 MG Q4H PRN 09/16 1630 AC PO Al Hydrox/Mg Hydrox/ 15 ML Q1H PRN 09/16 1630 AC Simethicone PO Atropine Sulfate 0.5 MG Q3MIN PRN 09/16 1630 AC IV Lidocaine HCl See Dose ONCE PRN 09/16 1630 AC Insts (3) IV Magnesium Hydroxide 10 ML DAILY PRN 09/16 1630 AC PO Morphine Sulfate 2 MG Q3M PRN 09/16 1630 AC 09/17 IV 0234 Nitroglycerin 0.4 MG Q5M PRN 09/16 1630 AC SL Ondansetron HCl 4 MG Q6H PRN 09/16 1630 AC 09/17 IV 2131 Dose Instructions: (1)Zolpidem Tartrate: 5 - 10 MG (2)Acetaminophen/Hydrocodone Bitart: 1 - 2 TABLETS (3)Lidocaine HCl: 1.5 MG/KG Allergies Coded Allergies: Codeine (Severe, Vomiting/CHEST PRESSURE 09/16/16) Pregabalin (From Lyrica) (Severe, 09/16/16) Reconcile Medications Scheduled Medications Buspirone HCl (Buspirone HCl 5 MG) 5 MG TAB 5 MG PO DAILY (Reported) Hydrocodone-Acetaminophen 10/325 MG ([place] 10/325 MG) 1 TAB TAB 1 TAB PO Q4H (Reported) Lisinopril (Zestril 2.5 MG) 2.5 MG TAB 2.5 MG PO DAILY (Reported) Lorazepam (Ativan 0.5 MG) 0.5 MG TAB 0.5 MG PO BID (Reported) Ondansetron (Zofran Odt 4 MG) 4 MG TAB 4 MG PO Q8H (Reported) Sertraline HCl 25 MG TAB 25 MG PO DAILY (Reported) Trazodone HCl (Unknown Strength) TAB 100 MG PO QHS (Reported) Last Taken: At an unknown date and time Zolpidem Tartrate (Ambien) (Unknown Strength) TAB 6.25 MG PO QHS (Reported) Last Taken: At an unknown date and time Physical Exam Vital Signs / I&Os Vital Signs Date Time Temp Pulse Resp B/P Pulse O2 O2 Flow FiO2 Ox Delivery Rate 09/18 0516 98.1 87 18 88/65 97 Room Air 0.0 09/18 0428 98.8 72 17 89/55 99 Room Air 09/18 0000 Room Air 09/17 2302 97.9 67 18 93/51 97 Room Air 09/17 1930 Room Air 09/17 1900 98.1 66 17 85/53 100 Room Air 09/17 1813 98.8 70 17 113/51 100 Room Air 09/17 1700 74 17 84/56 93 Room Air 09/17 1600 97.7 64 17 133/61 97 Room Air 09/17 1500 98.1 73 17 113/63 97 Room Air 09/17 1406 98.6 66 17 111/58 97 Room Air 09/17 1324 64 18 96/65 97 Room Air 09/17 1200 68 18 108/62 97 Room Air 09/17 1100 98.1 63 16 131/73 95 Room Air 09/17 1000 72 22 124/82 99 Room Air 09/17 0918 119/72 09/17 0913 76 22 170/60 99 Room Air 09/17 0829 72 16 127/49 99 Room Air I&O 09/18 0000 09/17 1600 09/17 0800 Intake Total 8131 947 2640 Output Total 900 1100 1150 Balance 348 -140 189 General Appearance Alert, Oriented X3, Cooperative, No acute distress Lungs Clear to auscultation Cardiovascular Regular rate and rhythm, Normal S1 and S2 Abdomen Normal bowel sounds, Soft, ileostomy present Extremities No cyanosis, No clubbing Neurological Cranial nerves intact, No lateralizing signs Psych/Mental Status Mental status normal, Mood normal LAB Results Laboratory Tests 09/18 09/17 09/17 09/17 0530 1745 1130 0850 Chemistry Plasma Sodium (136 - 145 mmol/L) 134 135 Plasma Potassium (3.5 - 5.1 mmol/L) 3.9 4.1 Plasma Chloride (98 - 107 mmol/L) 103 104 CO2 (Enzymatic) (21 - 32 mmol/L) 20 19 BUN (7 - 18 mg/dL) 16 17 Creatinine (0.6 - 1.3 mg/dL) 1.2 1.4 Est GFR ( Amer) (mL/min) 57.38 48.03 Est GFR (Non-Af Amer) (mL/min) 47.34 39.63 Glucose (70 - 110 mg/dL) 118 121 Plasma Calcium (8.5 - 10.1 mg/dL) 7.9 8.2 Troponin (0.00 - 1.5 ng/mL) <0.05 Hematology WBC (4.5 - 11.5 K/uL) 6.5 RBC (4.00 - 5.20 M/uL) 3.17 Hgb (12.0 - 16.0 gm/dL) 9.1 Hct (36.0 - 46.0 %) 27.5 MCV (80 - 100 fL) 87 MCH (26 - 34 pg) 29 RDW (11.6 - 14.8 %) 15.6 Neut % (Auto) (50 - 75 %) 52 Lymph % (Auto) (25 - 40 %) 44 [place] % (Auto) (3 - 14 %) 3 Eos % (Auto) (0 - 4 %) 0 Baso % (Auto) (0 - 2 %) 0 Band Neutrophils % (0 - 8 %) 1 Metamyelocytes % (0 - 1 %) 0 Myelocytes (0 - 1 %) 0 Other Cell Type 0 Plt Count, EDTA (150 - 400 K/uL) 396 RBC Morphology (55417 A) 1+ MICROCYTOSIS PUBS MCHC (31 - 37 g/dL) 33 Other Body Source Stool Occult Blood Pending Stl Occult Blood (ICT) (NEGATIVE) NEGATIVE Occult Blood (ICT) #2 (NEGATIVE) Pending Occult Blood (ICT) #3 (NEGATIVE) Pending Assessment and Plan Problem List 1. UTI (urinary tract infection) Plan -Patient with urine C&S showing enterococcus and staph species -We'll add vancomycin to current medical regimen until sensitivities obtained -Monitor 2. Generalized weakness Plan -Much improved -Ambulate with assistance -Plan placement in assisted living/longterm facility 3. Metabolic acidosis Plan -Improved -HCO3 20 this a.m. -DC bicarbonate drip -Monitor 4. Hyponatremia Status Acute Onset Date Unknown Plan -Hyponatremia improved -Monitor 5. Chronic back pain Status Chronic Onset Date Unknown Plan -Patient with history of chronic back pain -Symptoms adequately controlled at this time -Continue present pain medications 6. Anemia Status Acute Onset Date Unknown Plan -Patient with findings of mild anemia -H&H 9.1/27.5. -Iron profile unremarkable with iron percent saturation 25% -B12 and folate within normal limits -Monitor 7. Hyperkalemia Status Acute Onset Date Unknown Plan -Resolved -A.m. cortisol level high at 24.9 -Monitor Current status: Fair, improved Anticipated discharge date: Anticipated discharge in 1-2 days Anticipated discharge placement: custodial facility/assisted living Patient care time: Time in chart review, patient interview, physical exam, CPOE, and care documentation: 25 mins Visit to patient today: 1 Complexity of care: Moderate DVT prophylaxis: Heparin E&M Codes Rounding: Inpt-Moderate/[id number]
--- NOTE | 2016-09-18 06:48 | Progress Note ---
Subjective General Note Date: December 19, 2016 Admission Date: December 17, 2016 Hospital Day: 3 PCP: Oracio Demarco M.D. Status: Inpatient, CCU Advanced Directive: FULL CODE Room: 301 Admission History: The patient is a 70-year-old white female with a significant past medical history of diverticulitis status post partial colectomy with colostomy/ileostomy , hypertension, restless leg syndrome, chronic pain, depression/anxiety, insomnia, who presented to [facility] emergency department on the day of admission secondary to complaints of diffuse weakness, nausea, vomiting, and weight loss. [facility] ER evaluation was consistent with UTI, metabolic acidosis, hyponatremia, and generalized weakness. Secondary to the above, Brandon Martinez M.D. admitted the patient for further evaluation and treatment For other history present illness, past medical history, family history, social history, review of systems, and admission physical examination please see the patient's history and physical examination and ER visit note in the patient's medical record. Subjective: The patient states she is doing much better today. Eating well without problems. Denies history of dysphagia. He has experienced fairly high volumes of loose stool through ostomy site Patient requests: None Medications and Allergies Medications Current Medications Sig/Niki Start time Last Medication Dose Route Stop Time Status Admin Lorazepam 0.5 MG Q8H PRN 09/17 1730 AC 09/18 IV 0142 Famotidine 20 MG DAILY 09/17 0900 AC 09/17 PO 0818 Sertraline HCl 25 MG DAILY 09/17 0900 AC 09/17 PO 0818 Sodium Bicarbonate 100 MEQ Q11H 09/17 0730 AC 09/18 Dextrose/Sodium 1,000 ML IV 0519 Chloride Zolpidem Tartrate See Dose QHS PRN 09/16 2330 AC 09/18 Insts (1) PO 0142 Acetaminophen/ See Dose Q6H PRN 09/16 2245 AC 09/17 Hydrocodone Bitart Insts (2) PO 2129 Heparin Sodium 5,000 UNITS Q8HR 09/16 2200 AC 09/18 (Porcine) SC 0627 Ceftriaxone Sodium/ 50 ML DAILY 09/16 1915 AC 09/17 Dextrose IV 0818 Acetaminophen 650 MG Q4H PRN 09/16 1630 AC PO Al Hydrox/Mg Hydrox/ 15 ML Q1H PRN 09/16 1630 AC Simethicone PO Atropine Sulfate 0.5 MG Q3MIN PRN 09/16 1630 AC IV Lidocaine HCl See Dose ONCE PRN 09/16 1630 AC Insts (3) IV Magnesium Hydroxide 10 ML DAILY PRN 09/16 1630 AC PO Morphine Sulfate 2 MG Q3M PRN 09/16 1630 AC 09/17 IV 0234 Nitroglycerin 0.4 MG Q5M PRN 09/16 1630 AC SL Ondansetron HCl 4 MG Q6H PRN 09/16 1630 AC 09/17 IV 2131 Dose Instructions: (1)Zolpidem Tartrate: 5 - 10 MG (2)Acetaminophen/Hydrocodone Bitart: 1 - 2 TABLETS (3)Lidocaine HCl: 1.5 MG/KG Allergies Coded Allergies: Codeine (Severe, Vomiting/CHEST PRESSURE 09/16/16) Pregabalin (From Lyrica) (Severe, 09/16/16) Reconcile Medications Scheduled Medications Buspirone HCl (Buspirone HCl 5 MG) 5 MG TAB 5 MG PO DAILY (Reported) Hydrocodone-Acetaminophen 10/325 MG ([place] 10/325 MG) 1 TAB TAB 1 TAB PO Q4H (Reported) Lisinopril (Zestril 2.5 MG) 2.5 MG TAB 2.5 MG PO DAILY (Reported) Lorazepam (Ativan 0.5 MG) 0.5 MG TAB 0.5 MG PO BID (Reported) Ondansetron (Zofran Odt 4 MG) 4 MG TAB 4 MG PO Q8H (Reported) Sertraline HCl 25 MG TAB 25 MG PO DAILY (Reported) Trazodone HCl (Unknown Strength) TAB 100 MG PO QHS (Reported) Last Taken: At an unknown date and time Zolpidem Tartrate (Ambien) (Unknown Strength) TAB 6.25 MG PO QHS (Reported) Last Taken: At an unknown date and time Physical Exam Vital Signs / I&Os Vital Signs Date Time Temp Pulse Resp B/P Pulse O2 O2 Flow FiO2 Ox Delivery Rate 09/18 0516 98.1 87 18 88/65 97 Room Air 0.0 09/18 0428 98.8 72 17 89/55 99 Room Air 09/18 0000 Room Air 09/17 2302 97.9 67 18 93/51 97 Room Air 09/17 1930 Room Air 09/17 1900 98.1 66 17 85/53 100 Room Air 09/17 1813 98.8 70 17 113/51 100 Room Air 09/17 1700 74 17 84/56 93 Room Air 09/17 1600 97.7 64 17 133/61 97 Room Air 09/17 1500 98.1 73 17 113/63 97 Room Air 09/17 1406 98.6 66 17 111/58 97 Room Air 09/17 1324 64 18 96/65 97 Room Air 09/17 1200 68 18 108/62 97 Room Air 09/17 1100 98.1 63 16 131/73 95 Room Air 09/17 1000 72 22 124/82 99 Room Air 09/17 0918 119/72 09/17 0913 76 22 170/60 99 Room Air 09/17 0829 72 16 127/49 99 Room Air I&O 09/18 0000 09/17 1600 09/17 0800 Intake Total 6375 499 9734 Output Total 900 1100 1150 Balance 348 -140 189 General Appearance Alert, Oriented X3, Cooperative, No acute distress Lungs Clear to auscultation Cardiovascular Regular rate and rhythm, Normal S1 and S2 Abdomen Normal bowel sounds, Soft, ileostomy present Extremities No cyanosis, No clubbing Neurological Cranial nerves intact, No lateralizing signs Psych/Mental Status Mental status normal, Mood normal LAB Results Laboratory Tests 09/18 09/17 09/17 09/17 0530 1745 1130 0850 Chemistry Plasma Sodium (136 - 145 mmol/L) 134 135 Plasma Potassium (3.5 - 5.1 mmol/L) 3.9 4.1 Plasma Chloride (98 - 107 mmol/L) 103 104 CO2 (Enzymatic) (21 - 32 mmol/L) 20 19 BUN (7 - 18 mg/dL) 16 17 Creatinine (0.6 - 1.3 mg/dL) 1.2 1.4 Est GFR ( Amer) (mL/min) 57.38 48.03 Est GFR (Non-Af Amer) (mL/min) 47.34 39.63 Glucose (70 - 110 mg/dL) 118 121 Plasma Calcium (8.5 - 10.1 mg/dL) 7.9 8.2 Troponin (0.00 - 1.5 ng/mL) <0.05 Hematology WBC (4.5 - 11.5 K/uL) 6.5 RBC (4.00 - 5.20 M/uL) 3.17 Hgb (12.0 - 16.0 gm/dL) 9.1 Hct (36.0 - 46.0 %) 27.5 MCV (80 - 100 fL) 87 MCH (26 - 34 pg) 29 RDW (11.6 - 14.8 %) 15.6 Neut % (Auto) (50 - 75 %) 52 Lymph % (Auto) (25 - 40 %) 44 [place] % (Auto) (3 - 14 %) 3 Eos % (Auto) (0 - 4 %) 0 Baso % (Auto) (0 - 2 %) 0 Band Neutrophils % (0 - 8 %) 1 Metamyelocytes % (0 - 1 %) 0 Myelocytes (0 - 1 %) 0 Other Cell Type 0 Plt Count, EDTA (150 - 400 K/uL) 396 RBC Morphology (73974 A) 1+ MICROCYTOSIS PUBS MCHC (31 - 37 g/dL) 33 Other Body Source Stool Occult Blood Pending Stl Occult Blood (ICT) (NEGATIVE) NEGATIVE Occult Blood (ICT) #2 (NEGATIVE) Pending Occult Blood (ICT) #3 (NEGATIVE) Pending Assessment and Plan Problem List 1. UTI (urinary tract infection) Plan -Patient with urine C&S showing enterococcus and staph species -We'll add vancomycin to current medical regimen until sensitivities obtained -Monitor 2. Generalized weakness Plan -Much improved -Ambulate with assistance -Plan placement in assisted living/shelter facility 3. Metabolic acidosis Plan -Improved -HCO3 20 this a.m. -DC bicarbonate drip -Monitor 4. Hyponatremia Status Acute Onset Date Unknown Plan -Hyponatremia improved -Monitor 5. Chronic back pain Status Chronic Onset Date Unknown Plan -Patient with history of chronic back pain -Symptoms adequately controlled at this time -Continue present pain medications 6. Anemia Status Acute Onset Date Unknown Plan -Patient with findings of mild anemia -H&H 9.1/27.5. -Iron profile unremarkable with iron percent saturation 25% -B12 and folate within normal limits -Monitor 7. Hyperkalemia Status Acute Onset Date Unknown Plan -Resolved -A.m. cortisol level high at 24.9 -Monitor Current status: Fair, improved Anticipated discharge date: Anticipated discharge in 1-2 days Anticipated discharge placement: long-term facility/assisted living Patient care time: Time in chart review, patient interview, physical exam, CPOE, and care documentation: 25 mins Visit to patient today: 1 Complexity of care: Moderate DVT prophylaxis: Heparin E&M Codes Rounding: Inpt-Moderate/89051
[2016-09-18 10:31] VITALS: BP 109/59
[2016-09-18 14:50] VITALS: BP 109/65
[2016-09-18 18:30] VITALS: BP 86/50
[2016-09-18 22:51] VITALS: BP 98/54
[2016-09-19 05:05] VITALS: BP 116/56
[2016-09-19 06:10] VITALS: BP 106/67
--- NOTE | 2016-09-19 06:18 | Progress Note ---
Subjective General Note Date: December 20, 2016 Admission Date: December 17, 2016 Hospital Day: 4 PCP: Oracio Demarco M.D. Status: Inpatient, CCU Advanced Directive: FULL CODE Room: 301 Admission History: The patient is a 70-year-old white female with a significant past medical history of diverticulitis status post partial colectomy with colostomy/ileostomy , hypertension, restless leg syndrome, chronic pain, depression/anxiety, insomnia, who presented to [facility] emergency department on the day of admission secondary to complaints of diffuse weakness, nausea, vomiting, and weight loss. [facility] ER evaluation was consistent with UTI, metabolic acidosis, hyponatremia, and generalized weakness. Secondary to the above, Brandon Martinez M.D. admitted the patient for further evaluation and treatment For other history present illness, past medical history, family history, social history, review of systems, and admission physical examination please see the patient's history and physical examination and ER visit note in the patient's medical record. Subjective: I'm doing much better today. Eating and drinking well. No specific complaints other than concerns about living situation post discharge. Patient plans having granddaughter stay with her for 10 days. None None other than medications for anxiety Medications and Allergies Medications Current Medications Sig/Niki Start time Last Medication Dose Route Stop Time Status Admin Clarify Med Order See Dose 1530 09/21 1530 AC Insts (1) IV 09/21 1559 Vancomycin HCl/ 200 ML Q18H 09/18 1600 AC 09/18 Dextrose IV 1625 Vancomycin HCl See Dose .[PER PHARMACY] 09/18 1500 AC Insts (2) IV Lorazepam 0.5 MG Q8H PRN 09/17 1730 AC 09/19 IV 0130 Famotidine 20 MG DAILY 09/17 0900 AC 09/18 PO 0851 Sertraline HCl 25 MG DAILY 09/17 0900 AC 09/18 PO 0851 Zolpidem Tartrate See Dose QHS PRN 09/16 2330 AC 09/18 Insts (3) PO 2105 Acetaminophen/ See Dose Q6H PRN 09/16 2245 AC 09/19 Hydrocodone Bitart Insts (4) PO 0523 Heparin Sodium 5,000 UNITS Q8HR 09/16 2200 AC 09/19 (Porcine) SC 0522 Acetaminophen 650 MG Q4H PRN 09/16 1630 AC PO Al Hydrox/Mg Hydrox/ 15 ML Q1H PRN 09/16 1630 AC Simethicone PO Atropine Sulfate 0.5 MG Q3MIN PRN 09/16 1630 AC IV Lidocaine HCl See Dose ONCE PRN 09/16 1630 AC Insts (5) IV Magnesium Hydroxide 10 ML DAILY PRN 09/16 1630 AC PO Morphine Sulfate 2 MG Q3M PRN 09/16 1630 AC 09/17 IV 0234 Nitroglycerin 0.4 MG Q5M PRN 09/16 1630 AC SL Ondansetron HCl 4 MG Q6H PRN 09/16 1630 AC 09/18 IV 1434 Dose Instructions: (1)Clarify Med Order: VANCOMYCIN TROUGH (2)Vancomycin HCl: DOSING PER PHARMACY (3)Zolpidem Tartrate: 5 - 10 MG (4)Acetaminophen/Hydrocodone Bitart: 1 - 2 TABLETS (5)Lidocaine HCl: 1.5 MG/KG Allergies Coded Allergies: Codeine (Severe, Vomiting/CHEST PRESSURE 09/16/16) Pregabalin (From Lyrica) (Severe, 09/16/16) Reconcile Medications Scheduled Medications Buspirone HCl (Buspirone HCl 5 MG) 5 MG TAB 5 MG PO DAILY (Reported) Hydrocodone-Acetaminophen 10/325 MG ([place] 10/325 MG) 1 TAB TAB 1 TAB PO Q4H (Reported) Lisinopril (Zestril 2.5 MG) 2.5 MG TAB 2.5 MG PO DAILY (Reported) Lorazepam (Ativan 0.5 MG) 0.5 MG TAB 0.5 MG PO BID (Reported) Ondansetron (Zofran Odt 4 MG) 4 MG TAB 4 MG PO Q8H (Reported) Sertraline HCl 25 MG TAB 25 MG PO DAILY (Reported) Trazodone HCl (Unknown Strength) TAB 100 MG PO QHS (Reported) Last Taken: At an unknown date and time Zolpidem Tartrate (Ambien) (Unknown Strength) TAB 6.25 MG PO QHS (Reported) Last Taken: At an unknown date and time Physical Exam Vital Signs / I&Os Vital Signs Date Time Temp Pulse Resp B/P Pulse O2 O2 Flow FiO2 Ox Delivery Rate 09/19 0505 116/56 09/19 0416 97.5 71 18 98 Room Air 09/19 0130 Room Air 0.0 09/18 2251 97.9 65 16 98/54 100 Room Air 09/18 1830 97.9 72 16 86/50 96 Room Air 0.0 09/18 1600 Room Air 0.0 09/18 1450 98.2 67 18 109/65 98 Room Air 09/18 1031 98.2 76 18 109/59 97 Room Air 0.0 I&O 09/19 0000 09/18 1600 09/18 0800 Intake Total 750 1227 2229 Output Total 900 1325 950 Balance -150 -98 1279 General Appearance Alert, Oriented X3, Cooperative, No acute distress Lungs Clear to auscultation Cardiovascular Regular rate and rhythm, Normal S1 and S2 Abdomen Normal bowel sounds, Soft, No tenderness, No guarding Extremities No cyanosis, No clubbing, No edema Neurological Cranial nerves intact, No lateralizing signs Psych/Mental Status Mental status normal, Mood normal Assessment and Plan Problem List 1. UTI (urinary tract infection) Plan -Urine C&S positive for MRSA and enterococcus -Switch antimicrobial to nitrofurantoin -Monitor 2. Generalized weakness Plan -Much improved -Patient eating and drinking well -Dc IV fluid therapy -Monitor 3. Metabolic acidosis Plan -Resolved -Monitor 4. Hyponatremia Status Acute Onset Date Unknown Plan -Sodium normalized -Sodium 136 -Monitor 5. Chronic back pain Status Chronic Onset Date Unknown Plan -Stable -Continue outpatient medical regimen 6. Anemia Status Acute Onset Date Unknown Plan -Patient with mild anemia -H&H stable at 9.2/28.3 -Iron profile, B12, folate within normal limits -No signs of GI blood loss, stool Hemoccult negative 2 -Monitor 7. Hyperkalemia Status Acute Onset Date Unknown Plan -Resolved -Monitor Current status: Fair, improved Anticipated discharge date: Anticipated discharge in a.m. Anticipated discharge placement: Assisted living/snf facility Patient care time: Time in chart review, patient interview, physical exam, CPOE, and care documentation: 25 mins Visit to patient today: 1 Complexity of care: Moderate DVT prophylaxis: Lovenox E&M Codes Rounding: Inpt-Moderate/[id number]
[2016-09-19 10:18] VITALS: BP 111/69
[2016-09-19 14:43] VITALS: BP 128/82
[2016-09-19 18:38] VITALS: BP 95/52
[2016-09-20 03:47] VITALS: BP 115/75
[2016-09-20 06:28] VITALS: BP 104/70
--- NOTE | 2016-09-20 06:57 | Discharge Summary ---
Discharge Summary Report Admit Date 09/16/16 Discharge Date 09/20/16 Admission Diagnosis 1. UTI 2. Generalized weakness 3. Metabolic acidosis 4. Hyponatremia 5. Chronic back pain Discharge Diagnosis 1. UTI 2. Generalized weakness 3. Metabolic acidosis 4. Hyponatremia 5. Chronic back pain 5. Anemia 6. Hyperkalemia Brief History The patient is a 70-year-old white female with a significant past medical history of diverticulitis status post partial colectomy with colostomy/ileostomy , hypertension, restless leg syndrome, chronic pain, depression/anxiety, insomnia, who presented to [facility] emergency department on the day of admission secondary to complaints of diffuse weakness, nausea, vomiting, and weight loss. [facility] ER evaluation was consistent with UTI, metabolic acidosis, hyponatremia, and generalized weakness. Secondary to the above, Brandon Martinez M.D. admitted the patient for further evaluation and treatment For other history present illness, past medical history, family history, social history, review of systems, and admission physical examination please see the patient's history and physical examination and ER visit note in the patient's medical record. Hospital Course The following problems and their management were noted during the patient's hospitalization: 1. UTI The patient presented with findings of UTI. Cultures grew out coagulase negative staph and enterococcus. These were sensitive to nitrofurantoin. The patient was placed on nitrofurantoin at the time of discharge. Outpatient follow-up with PCP. 2. Generalized weakness-resolved The patient experienced generalized weakness on admission. This improved rapidly during the patient's hospitalization. She was up ambulating at the time of discharge. Outpatient follow-up with PCP 3. Metabolic acidosis-resolved The patient had findings of metabolic acidosis on admission. This was felt secondary to probable GI loss. This resolved and the patient's hospitalization. 4. Hyponatremia The patient had findings of hyponatremia on admission. This improved during the patient's hospitalization. It was not problematic on discharge. 5. Chronic back pain The patient has history of chronic back pain. No further evaluation was undertaken during the patient's hospitalization. Symptoms were well controlled with low-dose analgesics. Outpatient follow-up with PCP. 5. Anemia The patient had findings of mild anemia during her hospitalization. Iron studies, B12, folate were within normal limits. No findings of GI blood loss. Outpatient follow up with PCP. Patient placed on multivitamin/iron at discharge. 6. Hyperkalemia-Resolved The patient was noted to have findings of hyperkalemia. These resolved her hospitalization and no further treatment was undertaken. Potassium levels normal on discharge. General Appearance Alert, Oriented X3, Cooperative, No acute distress Lungs Clear to auscultation, Normal air movement Cardiovascular Regular Rate, Normal S1, Normal S2 Abdomen Normal bowel sounds, Soft, No tenderness Neurological Cranial nerves 3-12 NL Psych/Mental Status Mental status NL, Mood NL Discharge Instructions/Meds For other recommendations regarding discharge diet, activity, followup, and discharge medications please see the patient's discharge instructions. Discharge condition: Fair, improved Greater than 30 min. was spent in the patient's discharge preparation including discharge interview and physical examination, progress note, discharge instructions, and discharge summary The patient was interviewed and examined on the day of discharge. E&M Codes Discharge: Inpt >30 min spent/00262
[2016-09-20] MEDS ORDERED: MACROBID100 MG PO (10:53)
--- NOTE | 2016-09-20 10:56 | Provider's Discharge Care Plan ---
Problem, Goal, Plan Problem List 1. UTI (urinary tract infection) Goals: Improve disease control, Prevent disease progress Instructions: Follow up as directed, Take meds as directed, Have your family physician recheck your urine for resolution of your urinary tract infection after discontinuation of antibiotics 2. Anemia Goals: Improve disease control, Prevent disease progress Instructions: Follow up as directed, Take meds as directed, have your family physician recheck your blood count in 2 weeks
[2016-09-20] MEDS ORDERED: PRENATAL1 TAB PO (10:57)
[2016-09-20] MEDS ORDERED: NORCO1 TAB PO (13:00)
[2016-09-20] MEDS ORDERED: ATIVAN0.5 MG PO (13:00)
== END 2016-09-20 13:15 | disposition home or self-care (01) | DRG 690 ==
LOC: ED SRH 12:31 → TRANS SRH 14:28 → CC SRH 18:38 → ACUTE2 SRH 09-18 06:55
PROVIDERS: ADMIT Family Medicine
DX: N39.0 Urinary tract infection, site not specified (principal); B95.62 Methicillin resistant Staphylococcus aureus infection as the cause of diseases classified elsewhere; B95.2 Enterococcus as the cause of diseases classified elsewhere; E87.1 Hypo-osmolality and hyponatremia; E87.2 Acidosis; E86.0 Dehydration; N28.9 Disorder of kidney and ureter, unspecified; E87.5 Hyperkalemia; R53.1 Weakness; D64.9 Anemia, unspecified; Z93.2 Ileostomy status; G89.29 Other chronic pain; M54.9 Dorsalgia, unspecified; G25.81 Restless legs syndrome; F32.9 Major depressive disorder, single episode, unspecified; F41.9 Anxiety disorder, unspecified; Z98.84 Bariatric surgery status; Z72.0 Tobacco use; Z71.6 Tobacco abuse counseling
CPT/HCPCS: 90004; 90047; 90070; 90074; 90098; 90100; 90469; 90616; 91504; 91505; 91643; 91672; 92132; 92235; 92530; 92610; 92668; 92670; 92755; 93010; 93140; 94060; 95059

== ENCOUNTER 2016-09-21 11:44 | Outpatient (CLI) | payer OTHER ==
[~2016-09-21 11:44] MED LIST: AMBIEN5 MG PO; ATIVAN0.5 MG PO; BUSPIRONE HCL5 MG PO; MACROBID100 MG PO; NORCO1 TAB PO; PRENATAL1 TAB PO; SERTRALINE HCL25 MG PO; TRAZODONE HCL50 MG PO; ZESTRIL2.5 MG PO; ZOFRAN ODT4 MG PO
== END 2016-09-21 23:00 | disposition home or self-care (01) ==
LOC: LAB SRH 11:44
DX: D50.0 Iron deficiency anemia secondary to blood loss (chronic) (principal); E87.1 Hypo-osmolality and hyponatremia
CPT/HCPCS: 90074; 90100; 91643; 95059